=== PATIENT | female | born 1955 | race Hispanic/Latino ===

== ENCOUNTER 2020-03-27 20:51 | Emergency (ER) | payer SELFPAY ==
[2020-03-27] MEDS ORDERED: AZITHROMYCIN 500MG+NS 250ML 250 ML IV ONE (21:40)
[2020-03-27] MEDS ORDERED: ONDANSETRON HCL 4 MG/2 ML VIAL ONE (21:40)
[2020-03-27] MEDS ORDERED: ACETAMINOPHEN EXTRA STRENGTH 500 MG TABLET ONE (21:41)
[2020-03-27 22:42] LABS: HEMATOCRIT 39.9 % (36-48); LYMPHOCYTES % (AUTO) 17.4 % (21.0-51.0); MEAN CORPUSCULAR HEMOGLOBIN 30.1 pg (27.0-33.0); MEAN CORPUSCULAR HGB CONC 33.3 g/dL (32.0-36.0); MEAN CORPUSCULAR VOLUME 90.3 fL (79-99); MONOCYTES % (AUTO) 7.3 % (3.0-13.0); NEUTROPHILS % (AUTO) 75.1 % (40.0-77.0); PLATELET COUNT (AUTO) 161 K/uL (130-400); RED BLOOD CELL COUNT(AUTO) 4.42 MIL/uL (4.00-5.50); RED CELL DISTRIBUTION WIDTH 12.2 % (11.0-15.5); WHITE BLOOD COUNT (AUTO) 5.2 K/uL (4.8-10.8)
[2020-03-27 22:56] LABS: B-TYPE NATRIURETIC PEPTIDE 5 pg/mL (0-100)
[2020-03-27 22:58] LABS: CREATININE 0.9 mg/dL (0.5-1.5); POTASSIUM 3.3 mmol/L (3.5-5.1)
[2020-03-27 23:03] LABS: ALBUMIN 3.4 g/dL (3.5-5.0); BILIRUBIN,TOTAL 0.5 mg/dL (0.2-1.0); TOTAL PROTEIN, SERUM 7.4 g/dL (6.0-8.3)
== END 2020-03-28 00:07 | disposition home or self-care (01) ==
LOC: EDH 20:51
DX: U07.1 COVID-19 (principal)
CPT/HCPCS: 36415; 71045; 80053; 83605; 83880; 84145; 84484; 85025; 87040 ×2; 87426; 96365; 96366; 96375; 99284; J0456; J2405